=== PATIENT | female | born 1960 | race Caucasian/White ===

== ENCOUNTER 2017-10-23 18:03 | Emergency (ER) | payer MEDICAID ==
[~2017-10-23] VITALS: Ht 167.6 cm; Wt 90.0 kg
[~2017-10-23 18:03] MED LIST: ALPR-624 PO; DESV100T PO; DOCU250C4 PO; ELBA1TAB; ENAL5TAB PO; METF500T PO; ONDA4TAB6 PO; OXYC-511 PO; SITA100T11 PO; TRAZ-219 PO
[2017-10-23] MEDS ORDERED: dexamethasone sod phosphate 10mg/ml inj IM STA (20:19)
[2017-10-23] MEDS ORDERED: HYDROcodone/acetaminophen 10/325mg tab PO ONE (20:20)
[2017-10-23] MEDS ORDERED: ondansetron 4mg rapidly disintigrating tab PO ONE (20:20)
[2017-10-23 20:46] VITALS: BP 106/63
[2017-10-23] MEDS ORDERED: MAGN296S50 PO (21:14)
[2017-10-23] MEDS ORDERED: HYDROmorphone 1 mg/ml syringe IM ONE ×2 (21:15)
== END 2017-10-23 22:04 | disposition home or self-care (01) ==
LOC: ER 18:04
DX: M54.9 Dorsalgia, unspecified (principal); R20.0 Anesthesia of skin; G89.29 Other chronic pain; K21.9 Gastro-esophageal reflux disease without esophagitis; E11.9 Type 2 diabetes mellitus without complications; Z90.49 Acquired absence of other specified parts of digestive tract; Z98.890 Other specified postprocedural states; Z88.0 Allergy status to penicillin; Z88.2 Allergy status to sulfonamides; Z88.5 Allergy status to narcotic agent; Z88.8 Allergy status to other drugs, medicaments and biological substances; Z79.84 Long term (current) use of oral hypoglycemic drugs; Z79.899 Other long term (current) drug therapy; Z60.2 Problems related to living alone
CPT/HCPCS: 72100; 96372; 99284; J1100; J1170

== ENCOUNTER 2017-11-08 19:31 | Inpatient (IN) | payer MEDICAID ==
[~2017-11-08] VITALS: Ht 167.6 cm; Wt 82.7 kg
[~2017-11-08 19:31] MED LIST changes: +MAGN296S50 PO
[2017-11-08] MEDS ORDERED: morphine 4 MG/ML inj SYRINge IM ONE (21:35)
[2017-11-08 23:07] LABS: BASOPHILS % (AUTO) 0.7 % (0-1); EOSINOPHILS # (AUTO) 0.1 X10'3 (0-0.9); EOSINOPHILS % (AUTO) 2.8 % (0-6); HEMATOCRIT 31.1 % (35.0-45.0); HEMOGLOBIN 10.7 g/dl (12.0-16.0); LYMPHOCYTES # (AUTO) 1.4 X10'3 (1.1-4.8); LYMPHOCYTES % (AUTO) 34.9 % (21-51); MEAN CORPUSCULAR HEMOGLOBIN 30.5 PG (27.0-31.0); MEAN CORPUSCULAR HGB CONC 34.5 % (33.0-36.5); MEAN CORPUSCULAR VOLUME 88.4 FL (78-98); MEAN PLATELET VOLUME 6.9 FL (7.4-10.4); MONOCYTES # (AUTO) 0.4 X10'3 (0-0.9); MONOCYTES % (AUTO) 9.1 % (2-12); NEUTROPHILS # (AUTO) 2.1 X10'3 (1.8-7.7); NEUTROPHILS % (AUTO) 52.5 % (42-75); PLATELET COUNT 163 X10'3 (140-440); RED BLOOD COUNT 3.51 X10'6 (4.20-5.60); RED CELL DISTRIBUTION WIDTH 15.2 % (11.5-14.5)
[2017-11-08] MEDS ORDERED: ALPR1TAB2 PO (23:10)
[2017-11-08] MEDS ORDERED: CYCL-1 PO (23:10)
[2017-11-08 23:26] LABS: ALANINE AMINOTRANSFERASE 27 U/L (12-78); ALBUMIN 3.3 G/DL (3.4-5.0); ALBUMIN/GLOBULIN RATIO 0.7 (1.1-1.5); ALKALINE PHOSPHATASE 111 IU/L (46-116); ANION GAP 8 (8-16); ASPARTATE AMINO TRANSFERASE 15 U/L (10-37); BILIRUBIN,TOTAL 0.3 MG/DL (0.1-1.0); BLOOD UREA NITROGEN 39 MG/DL (7-18); BUN/CREATININE RATIO 30.5 (6.6-38.0); CALCIUM 8.9 MG/DL (8.5-10.1); CHLORIDE 103 MMOL/L (99-107); CREATININE 1.28 MG/DL (0.40-0.90); GLUCOSE 108 MG/DL (70-104); POTASSIUM 4.5 MMOL/L (3.5-5.1); SODIUM 135 MMOL/L (135-145); eGFR 43 ML/MIN
[2017-11-08] MEDS ORDERED: ondansetron/PF 4mg/2ml inj IV ONE (23:45)
[2017-11-09] MEDS: morphine 4 MG/ML inj SYRINge IV PRN ×2 (00:09→01:19)
[2017-11-09] MEDS ORDERED: ipratropium/albuterol 3ml nebule NEB PRN (01:00)
[2017-11-09] MEDS ORDERED: magnesium hydroxide 30ml (MOM) UD suspension PO PRN (01:00)
[2017-11-09] MEDS ORDERED: mag hydrox/Alum hydrox/simeth 30ml oral suspension PO PRN (01:00)
[2017-11-09] MEDS ORDERED: magnesium 1gm/100ml D5W IVPB 100 ML IV PRN (01:00)
[2017-11-09] MEDS ORDERED: acetaminophen 325mg tablet PO PRN (01:00)
[2017-11-09] MEDS ORDERED: potassium Cl 40MEQ/NS 500ml 500 ML IV PRN ×2 (01:00)
[2017-11-09] MEDS ORDERED: magnesium 4gm in 100ml NS 100 ML IV PRN (01:00)
[2017-11-09] MEDS ORDERED: ondansetron/PF 4mg/2ml inj IV PRN (01:00)
[2017-11-09] MEDS ORDERED: potassium Cl 20 mEq SR tablet PO PRN ×2 (01:00)
[2017-11-09] MEDS ORDERED: HYDROmorphone inj. 0.5 MG/0.5 ML DISP.SYRIN IV PRN (01:00)
[2017-11-09] MEDS ORDERED: MESSAGE TO PHARMACY PO ONE (01:25)
[2017-11-09] MEDS ORDERED: insulin Lispro (HumaLOG) vial - multi-dose SQ SCH (01:25)
[2017-11-09] MEDS ORDERED: dextrose 50%-water 50ml dispensing syringe IV PRN ×2 (01:25)
[2017-11-09] MEDS ORDERED: dextrose ORAL solution 15 GM/59 ML bottle PO PRN ×2 (01:25)
[2017-11-09] MEDS ORDERED: glucagon, human recombinant 1mg kit SUBCUT PRN (01:25)
[2017-11-09] MEDS: normal saline 1000ml 1,000 ML IV SCH ×2 (01:59→13:45)
[2017-11-09 02:16] LABS: CLARITY,URINE CLEAR (Clear); COLOR,URINE YELLOW (Yellow); GLUCOSE, URINE NEGATIVE (Neg); KETONES,URINE NEGATIVE (Neg); LEUKOCYTE ESTERASE ,URINE NEGATIVE (Neg); NITRITES, URINE NEGATIVE (Neg); OCCULT BLOOD,URINE SMALL (Neg); PH,URINE 5.5 (4.8-8.0); PROTEIN,URINE >=300 mg/dl (Neg); UROBILINOGEN,URINE 0.2 E.U/dL (0.2-1.0)
[2017-11-09 02:31] LABS: UA COLLECTION TYPE FOLEY CATH
[2017-11-09 02:33] LABS: WBC,URINE 0-4 /HPF (0-4)
[2017-11-09 02:34] LABS: BACTERIA,URINE 1+ /HPF (Neg); SQUAMOUS EPITHELIAL CELL,UR FEW /LPF (FEW)
[2017-11-09 02:35] LABS: AMORPHOUS URATES 2+
[2017-11-09] MEDS ORDERED: HYDROmorphone 1 mg/ml syringe ONE ×4 (03:33→15:17)
[2017-11-09] MEDS: HYDROmorphone inj. 0.5 MG/0.5 ML DISP.SYRIN IV PRN ×2 (03:37→07:30)
[2017-11-09 04:26] VITALS: BP 138/81
[2017-11-09 05:07] VITALS: BP 138/81
[2017-11-09] MEDS ORDERED: ALPRAZolam 0.5mg tablet PO PRN (05:25)
[2017-11-09] MEDS: dronabinol 2.5mg capsule PO PRN ×2 (05:36→11:55)
[2017-11-09] MEDS: oxyCODONE/APAP 10/325mg tablet PO SCH ×3 (05:36→13:45)
[2017-11-09 06:00] VITALS: BP 140/66
[2017-11-09] MEDS: docusate sod 100mg capsule PO SCH ×2 (07:27→13:45)
[2017-11-09] MEDS ORDERED: enoxaparin 40mg/0.4ml syringe SQ SCH (08:00)
[2017-11-09] MEDS ORDERED: K and/or MAG REPLACEMENT MC SCH (08:00)
[2017-11-09] MEDS ORDERED: cyclobenzaprine 10mg tablet PO SCH (08:00)
[2017-11-09] MEDS ORDERED: pantoprazole 40mg Tablet.DR PO SCH (08:00)
[2017-11-09] MEDS ORDERED: nicotine 21mg patch - 24 hr TD SCH (08:00)
[2017-11-09 10:00] VITALS: BP 148/82
[2017-11-09] MEDS ORDERED: insulin glargine (Lantus) pen - multi-dose SQ SCH (21:00)
== END 2017-11-09 16:30 | disposition home or self-care (01) | DRG 340 ==
LOC: ER 19:32 → ED HOLD 11-09 00:56 → ORTHO 4S 11-09 04:07
PROVIDERS: ADMIT Family Medicine; ATTEND Family Medicine
DX: S72.144A Nondisplaced intertrochanteric fracture of right femur, initial encounter for closed fracture (principal); E11.21 Type 2 diabetes mellitus with diabetic nephropathy; E11.40 Type 2 diabetes mellitus with diabetic neuropathy, unspecified; D64.9 Anemia, unspecified; E11.22 Type 2 diabetes mellitus with diabetic chronic kidney disease; F17.210 Nicotine dependence, cigarettes, uncomplicated; G89.29 Other chronic pain; W06.XXXA Fall from bed, initial encounter; K21.9 Gastro-esophageal reflux disease without esophagitis; N18.9 Chronic kidney disease, unspecified; Z88.0 Allergy status to penicillin; Z88.8 Allergy status to other drugs, medicaments and biological substances; Z88.2 Allergy status to sulfonamides; Z90.49 Acquired absence of other specified parts of digestive tract; Y92.003 Bedroom of unspecified non-institutional (private) residence as the place of occurrence of the external cause; Y93.89 Activity, other specified; Z82.3 Family history of stroke; Z82.49 Family history of ischemic heart disease and other diseases of the circulatory system; Z87.11 Personal history of peptic ulcer disease; Z89.611 Acquired absence of right leg above knee; Z95.0 Presence of cardiac pacemaker
CPT/HCPCS: 36415; 72192; 80053; 81001; 82948; 83036; 85025; 87070; 93005; 93306; 94760; 96372; 96374; 99285; A4315; J1170; J1650; J1815; J2270; J2405; J7030; Q0167

== ENCOUNTER 2017-12-04 19:35 | Emergency (ER) | payer MEDICAID ==
[~2017-12-04] VITALS: Ht 167.6 cm; Wt 81.8 kg
[~2017-12-04 19:35] MED LIST changes: -ALPR-624 PO; +ALPR1TAB2 PO; +CYCL-1 PO; -ELBA1TAB; -ENAL5TAB PO; -MAGN296S50 PO; -TRAZ-219 PO
[2017-12-04] MEDS ORDERED: morphine 4 MG/ML inj SYRINge IM ONE (21:05)
[2017-12-04] MEDS ORDERED: LIDOcaine 5% patch TP ONE (21:05)
[2017-12-04] MEDS ORDERED: ACET-2615 PO (21:35)
[2017-12-04] MEDS ORDERED: LIDO700A32 TOP (21:35)
[2017-12-04] MEDS ORDERED: IBUP-1984 PO (21:35)
[2017-12-04] MEDS ORDERED: ondansetron 4mg rapidly disintigrating tab PO ONE (21:55)
[2017-12-04 22:20] VITALS: BP 133/87
== END 2017-12-04 22:16 | disposition home or self-care (01) ==
LOC: ER 19:35
DX: G89.29 Other chronic pain (principal); M54.5 Low back pain; E11.9 Type 2 diabetes mellitus without complications; K21.9 Gastro-esophageal reflux disease without esophagitis; Z90.49 Acquired absence of other specified parts of digestive tract; Z88.0 Allergy status to penicillin; Z88.2 Allergy status to sulfonamides; Z88.5 Allergy status to narcotic agent; Z88.8 Allergy status to other drugs, medicaments and biological substances; Z79.84 Long term (current) use of oral hypoglycemic drugs; Z79.899 Other long term (current) drug therapy; Z60.2 Problems related to living alone
CPT/HCPCS: 72100; 96372; 99284; J2270

== ENCOUNTER 2017-12-05 14:17 | Emergency (ER) | payer MEDICAID ==
[~2017-12-05] VITALS: Ht 162.6 cm; Wt 81.8 kg
[~2017-12-05 14:17] MED LIST changes: +ACET-2615 PO; +IBUP-1984 PO; +LIDO700A32 TOP
[2017-12-05] MEDS ORDERED: morphine 4 MG/ML inj SYRINge IM ONE ×2 (15:45→22:40)
[2017-12-05 16:04] LABS: BASOPHILS % (AUTO) 0.9 % (0-1); EOSINOPHILS % (AUTO) 1.5 % (0-6); HEMATOCRIT 32.6 % (35.0-45.0); HEMOGLOBIN 10.9 g/dl (12.0-16.0); LYMPHOCYTES % (AUTO) 30.4 % (21-51); MEAN CORPUSCULAR HEMOGLOBIN 29.5 PG (27.0-31.0); MEAN CORPUSCULAR HGB CONC 33.4 % (33.0-36.5); MEAN CORPUSCULAR VOLUME 88.3 FL (78-98); MEAN PLATELET VOLUME 7.1 FL (7.4-10.4); MONOCYTES # (AUTO) 0.3 X10'3 (0-0.9); MONOCYTES % (AUTO) 8.7 % (2-12); NEUTROPHILS # (AUTO) 1.8 X10'3 (1.8-7.7); NEUTROPHILS % (AUTO) 58.5 % (42-75); PLATELET COUNT 124 X10'3 (140-440); RED BLOOD COUNT 3.68 X10'6 (4.20-5.60); RED CELL DISTRIBUTION WIDTH 15.1 % (11.5-14.5); WHITE BLOOD COUNT 3.1 X10'3 (4.5-11.0)
[2017-12-05] MEDS ORDERED: ondansetron 4mg rapidly disintigrating tab PO ONE (16:15)
[2017-12-05 16:18] LABS: ALANINE AMINOTRANSFERASE 18 U/L (12-78); ALBUMIN 3.4 G/DL (3.4-5.0); ALBUMIN/GLOBULIN RATIO 0.8 (1.1-1.5); ALKALINE PHOSPHATASE 109 IU/L (46-116); ANION GAP 8 (8-16); ASPARTATE AMINO TRANSFERASE 15 U/L (10-37); BILIRUBIN,TOTAL 0.3 MG/DL (0.1-1.0); BLOOD UREA NITROGEN 31 MG/DL (7-18); BUN/CREATININE RATIO 26.3 (6.6-38.0); CALCIUM 8.9 MG/DL (8.5-10.1); CHLORIDE 103 MMOL/L (99-107); CREATININE 1.18 MG/DL (0.40-0.90); GLUCOSE 110 MG/DL (70-104); SODIUM 137 MMOL/L (135-145); TOTAL CARBON DIOXIDE 25.7 MMOL/L (24-32); TOTAL PROTEIN 7.7 G/DL (6.4-8.2); eGFR 47 ML/MIN
[2017-12-05] MEDS ORDERED: nicotine 14mg patch - 24hr TD ONE (19:00)
[2017-12-05] MEDS ORDERED: normal saline 1000ml 1,000 ML IV SCH (19:00)
[2017-12-05] MEDS ORDERED: morphine 4 MG/ML inj SYRINge IV ONE (19:00)
[2017-12-05] MEDS ORDERED: LORazepam 2 mg/ml vial IV ONE (19:00)
[2017-12-05 23:10] VITALS: BP 140/82
== END 2017-12-05 23:11 | disposition short-term general hospital (02) ==
LOC: ER 14:17
DX: S22.088A Other fracture of T11-T12 vertebra, initial encounter for closed fracture (principal); M54.5 Low back pain; K21.9 Gastro-esophageal reflux disease without esophagitis; E11.9 Type 2 diabetes mellitus without complications; G89.29 Other chronic pain; Z87.11 Personal history of peptic ulcer disease; Z90.49 Acquired absence of other specified parts of digestive tract; Z98.890 Other specified postprocedural states; Z89.611 Acquired absence of right leg above knee; Z88.8 Allergy status to other drugs, medicaments and biological substances; Z88.0 Allergy status to penicillin; Z88.2 Allergy status to sulfonamides; Z88.1 Allergy status to other antibiotic agents; Z88.5 Allergy status to narcotic agent; Z79.899 Other long term (current) drug therapy; W06.XXXA Fall from bed, initial encounter; Y93.89 Activity, other specified; Y92.89 Other specified places as the place of occurrence of the external cause; Y99.9 Unspecified external cause status
CPT/HCPCS: 36415; 72131; 72192; 80053; 82948; 83605; 84145; 85025; 85651; 87040; 96372; 96374; 96375; 99291; J2060; J2270; J7030

== ENCOUNTER 2018-04-22 13:26 | Emergency (ER) | payer MEDICAID ==
[~2018-04-22] VITALS: Ht 167.6 cm; Wt 75.0 kg
[~2018-04-22 13:26] MED LIST changes: -ACET-2615 PO; -IBUP-1984 PO
[2018-04-22] MEDS ORDERED: ondansetron 4mg rapidly disintigrating tab PO ONE (14:25)
[2018-04-22] MEDS ORDERED: morphine 4 MG/ML inj SYRINge IM ONE (14:25)
--- NOTE | 2018-04-22 14:35 | NUR ---
PT TO CT
--- NOTE | 2018-04-22 14:50 | NUR ---
PT. MAY HAVE MS PER DR EARL.
[2018-04-22] MEDS ORDERED: morphine 4 MG/ML inj SYRINge IV ONE ×2 (15:55→19:10)
--- NOTE | 2018-04-22 16:04 | NUR ---
LAB AT BEDSIDE
[2018-04-22 16:21] LABS: BASOPHILS % (AUTO) 0.7 % (0-1); EOSINOPHILS # (AUTO) 0.1 X10'3 (0-0.9); EOSINOPHILS % (AUTO) 1.5 % (0-6); HEMATOCRIT 31.3 % (35.0-45.0); HEMOGLOBIN 10.5 g/dl (12.0-16.0); LYMPHOCYTES # (AUTO) 0.9 X10'3 (1.1-4.8); LYMPHOCYTES % (AUTO) 26.1 % (21-51); MEAN CORPUSCULAR HGB CONC 33.6 g/dL (33.0-36.5); MEAN CORPUSCULAR VOLUME 92.5 FL (78-98); MONOCYTES # (AUTO) 0.2 X10'3 (0-0.9); MONOCYTES % (AUTO) 6.9 % (2-12); NEUTROPHILS # (AUTO) 2.2 X10'3 (1.8-7.7); NEUTROPHILS % (AUTO) 64.8 % (42-75); PLATELET COUNT 103 X10'3 (140-440); RED BLOOD COUNT 3.38 X10'6 (4.20-5.60); RED CELL DISTRIBUTION WIDTH 14.9 % (11.5-14.5); WHITE BLOOD COUNT 3.4 X10'3 (4.5-11.0)
[2018-04-22] MEDS ORDERED: OXYC15TA88 PO (16:29)
[2018-04-22] MEDS ORDERED: LISI-604 PO (16:29)
[2018-04-22] MEDS ORDERED: ESOM20CA38 PO (16:29)
[2018-04-22] MEDS ORDERED: DOCU-267 PO (16:29)
[2018-04-22] MEDS ORDERED: METF-436 PO ×2 (16:30)
[2018-04-22] MEDS ORDERED: RISP1TAB13 PO (16:33)
[2018-04-22 16:36] LABS: ALANINE AMINOTRANSFERASE 17 U/L (12-78); ALBUMIN 3.4 G/DL (3.4-5.0); ALBUMIN/GLOBULIN RATIO 0.9 (1.1-1.5); ALKALINE PHOSPHATASE 106 IU/L (46-116); ANION GAP 8 (8-16); ASPARTATE AMINO TRANSFERASE 13 U/L (10-37); BILIRUBIN,TOTAL 0.2 MG/DL (0.1-1.0); BLOOD UREA NITROGEN 38 MG/DL (7-18); BUN/CREATININE RATIO 29.2 (6.6-38.0); CALCIUM 8.6 MG/DL (8.5-10.1); CHLORIDE 104 MMOL/L (99-107); GLUCOSE 77 MG/DL (70-104); POTASSIUM 5.9 MMOL/L (3.5-5.1); SODIUM 136 MMOL/L (135-145); TOTAL CARBON DIOXIDE 24.3 MMOL/L (24-32); TOTAL PROTEIN 7.4 G/DL (6.4-8.2); eGFR 42 ML/MIN
[2018-04-22] MEDS ORDERED: OXYC-150 PO (16:36)
--- NOTE | 2018-04-22 18:30 | NUR ---
PT IS AT THE DOOR OF THE ROOMIN A WHEELCHAIR YELLING ASKING TO TALK TO THE CHARGE NURSE. CHARGE NURSE JASON OSBORNE ARRIVES AND PT IS YELLING ABOUT NOT GETTING A GURNEY, YELLING ABOUT NO WANTING AN XRAY, SHE REPORTS THAT SHE HAS HAD TOO MUCH RADIATION. CHAGE NURSE JASON OSBORNE IS TRYING TO TALK TO THE PT CALMLY. PT IS YELLING OVER JASON OSBORNE AND WILL NOT HAVE A RATIONAL CONVERSATION. PT IS ANGRILY VOICING HER DISSAPROVAL FOR NOT HAVING A GURNEY AT HER DISPOSAL.
--- NOTE | 2018-04-22 18:32 | NUR ---
PT. IS ANGRY, YELLING AT STAFF. I CAME INTO THE ROOM TO DE-ESCALATE THE SITUATION. I TRIED TO EXPLAIN TO THE PT. THAT DR. EARL TALKED TO HER MULTIPLE TIMES AFTER SPEAKING TO THE AT [facility]. HE EXPLAINED THAT HE NEEDED TO DO ANOTHER X-RAY PER THE AT [facility]. PT. IS YELLING WANTING TO KNOW WHY SHE IS NOT LAYING ON A GURNEY. I EXPLAINED THAT I HAVE ALAS GURNEYS THAT ARE ALL FULL..... PT. STARTED YELLING AGAIN. I ASKED HER IF SHE WAS GOING TO LET ME EXPLAIN AND SHE PULLED OUT HER WATCH, WAS NOT MAKING EYE CONTACT, SHE WAS LOOKING AT HER WATCH AND SMUGGLY LAUGHIN... I TOLD HER I CAME IN TO EXPLAIN THE SITUATION TO HER. IF SHE DID NOT WANT TO LISTEN, THAT I HAD AN ER FULL OF PT'S I COULD BE HELPING. I TOLD HER I WOULD BE HAPPY TO EXPLAIN TO HER BUT I DID NOT HAVE TIME TO PLAY A GAME WITH HER. X-RAY STANDING BY TO DO TEST. I ASKED THE PT. IF SHE WAS GOING TO GET THE XRAY THAT THE FORM [facility] WANTED. SHE SAID "NO" "NO I AM STILL WAITING FOR THE EXPLINATION ABOUT THE GURNEY". I TOLD HER THAT I HAD LISTENED TO HER AND IT WOULD BE NICE IF SHE COULD HEAR ME OUT. SHE SAID AGAIN " GO AHEAD AND LOOKED AT HER WATCH AND STARTED TO SMILE.... I EXPLAINED TO HER THAT I WAS ENDING THIS CONVERSATION. PT. STATES SHE IS LEAVING AMA PAPER WORK STARTED
--- NOTE | 2018-04-22 18:39 | NUR ---
PT IS HAS GOTTEN HERSELF OUT OF THE WHEELCHAIR ON MADE A BED ON THE FLOOR. STILL REFUSING TO HAVE AND XRAY. DR EARL NOTIFIED THAT PT WILL GO AMA AND IS REFUSING MEDICAL TREATEMENT. I WENT IN TO HAVE PT SIGN AMA FORMS AND SHE REFUSED. DR EARL NOTIFED. DR EARL WENT IN TO TALK TO THE PT AND PT AGRRED TO HAVE XRAY AND DOES NOT WANT TO GO AMA.
--- NOTE | 2018-04-22 18:51 | NUR ---
PT IS BACK FROM XRAY AND IS LAYING ON THE FLOOR
--- NOTE | 2018-04-22 19:07 | NUR ---
PT IS SITTING ON THE FLOOR.
--- NOTE | 2018-04-22 19:40 | NUR ---
PATIENT BACK FROM XRAY
[2018-04-22 19:48] VITALS: BP 121/83
== END 2018-04-22 20:32 | disposition left against medical advice (07) ==
LOC: ER 13:27
DX: T84.038A Mechanical loosening of other internal prosthetic joint, initial encounter (principal); M54.89 Other dorsalgia; E87.5 Hyperkalemia; K21.9 Gastro-esophageal reflux disease without esophagitis; E11.9 Type 2 diabetes mellitus without complications; F17.200 Nicotine dependence, unspecified, uncomplicated; Z86.19 Personal history of other infectious and parasitic diseases; Z90.49 Acquired absence of other specified parts of digestive tract; Z95.0 Presence of cardiac pacemaker; Z89.611 Acquired absence of right leg above knee; Z98.890 Other specified postprocedural states; Z60.2 Problems related to living alone; Z88.8 Allergy status to other drugs, medicaments and biological substances; Z88.0 Allergy status to penicillin; Z88.2 Allergy status to sulfonamides; Z88.1 Allergy status to other antibiotic agents; Z88.5 Allergy status to narcotic agent; Z79.899 Other long term (current) drug therapy; Y92.89 Other specified places as the place of occurrence of the external cause
CPT/HCPCS: 36415; 72128; 80053; 84132; 85025; 85651; 86140; 93005; 96372; 96374; 96376; 99284; J2270; 96375

== ENCOUNTER 2018-12-03 16:16 | Emergency (ER) | payer MEDICAID ==
[~2018-12-03] VITALS: Ht 167.6 cm; Wt 90.0 kg
[~2018-12-03 16:16] MED LIST changes: +DOCU-267 PO; -DOCU250C4 PO; +ESOM20CA38 PO; -LIDO700A32 TOP; +LISI-604 PO; +METF-436 PO; -METF500T PO; +OXYC-150 PO; -OXYC-511 PO; +OXYC15TA88 PO; +RISP1TAB13 PO
[2018-12-03] MEDS ORDERED: morphine 10mg/ml inj. IV ONE ×2 (17:35→18:50)
[2018-12-03] MEDS ORDERED: ondansetron/PF 4mg/2ml inj IV ONE (18:55)
[2018-12-03 19:33] VITALS: BP 119/83
== END 2018-12-03 19:34 | disposition home or self-care (01) ==
LOC: ER 16:16
DX: M54.5 Low back pain (principal); G89.29 Other chronic pain; K21.9 Gastro-esophageal reflux disease without esophagitis; E11.9 Type 2 diabetes mellitus without complications; Z86.19 Personal history of other infectious and parasitic diseases; Z90.49 Acquired absence of other specified parts of digestive tract; Z95.0 Presence of cardiac pacemaker; Z98.890 Other specified postprocedural states; Z60.2 Problems related to living alone; Z88.8 Allergy status to other drugs, medicaments and biological substances; Z88.0 Allergy status to penicillin; Z88.2 Allergy status to sulfonamides; Z88.5 Allergy status to narcotic agent; Z79.84 Long term (current) use of oral hypoglycemic drugs; Z79.899 Other long term (current) drug therapy; X50.1XXA Overexertion from prolonged static or awkward postures, initial encounter; Y93.89 Activity, other specified; Y92.89 Other specified places as the place of occurrence of the external cause; Y99.8 Other external cause status
CPT/HCPCS: 72100; 96374; 96375; 96376; 99284; J2270; J2405; 99283

== ENCOUNTER 2019-09-09 13:17 | Emergency (ER) | payer MEDICAID ==
[~2019-09-09] VITALS: Ht 167.6 cm; Wt 83.6 kg
[~2019-09-09 13:17] MED LIST changes: +OXYC15TA PO; -OXYC15TA88 PO
[2019-09-09 13:27] VITALS: BP 152/93
== END 2019-09-09 16:40 | disposition home or self-care (01) ==
LOC: ER 13:18
DX: M54.5 Low back pain (principal); G89.29 Other chronic pain; K21.9 Gastro-esophageal reflux disease without esophagitis; E11.9 Type 2 diabetes mellitus without complications; Z86.19 Personal history of other infectious and parasitic diseases; Z90.49 Acquired absence of other specified parts of digestive tract; Z95.0 Presence of cardiac pacemaker; Z60.2 Problems related to living alone; Z88.0 Allergy status to penicillin; Z88.1 Allergy status to other antibiotic agents; Z88.8 Allergy status to other drugs, medicaments and biological substances; Z88.2 Allergy status to sulfonamides; Z79.899 Other long term (current) drug therapy
CPT/HCPCS: 72125; 72128; 72131; 99285

== ENCOUNTER 2020-02-16 22:51 | Emergency (ER) | payer MEDICAID ==
[~2020-02-16] VITALS: Ht 167.6 cm; Wt 86.4 kg
[2020-02-16 22:53] VITALS: BP 104/54
[2020-02-16] MEDS ORDERED: fentaNYL/PF 50MCG/1 ML 2ML syringe IM ONE (23:05)
[2020-02-16] MEDS ORDERED: ketorolac tromethamine 15mg/ml inj. IM ONE (23:05)
== END 2020-02-17 00:24 | disposition home or self-care (01) ==
LOC: ER 22:52
DX: M54.9 Dorsalgia, unspecified (principal); G89.29 Other chronic pain; Z98.890 Other specified postprocedural states; K21.9 Gastro-esophageal reflux disease without esophagitis; E11.9 Type 2 diabetes mellitus without complications; Z90.49 Acquired absence of other specified parts of digestive tract; Z95.0 Presence of cardiac pacemaker; Z89.611 Acquired absence of right leg above knee; Z86.73 Personal history of transient ischemic attack (TIA), and cerebral infarction without residual deficits; Z88.0 Allergy status to penicillin; Z88.1 Allergy status to other antibiotic agents; Z88.2 Allergy status to sulfonamides; Z88.6 Allergy status to analgesic agent; Z88.8 Allergy status to other drugs, medicaments and biological substances; Z79.899 Other long term (current) drug therapy
CPT/HCPCS: 72082; 96372; 99284; J1885; J3010

== ENCOUNTER 2021-03-13 15:28 | Emergency (ER) | payer MEDICAID ==
[~2021-03-13] VITALS: Ht 167.6 cm; Wt 80.5 kg
[~2021-03-13 15:28] MED LIST changes: +DOCU-262 PO; -DOCU-267 PO; -LISI-604 PO; +LISI5TAB22 PO
[2021-03-13] MEDS ORDERED: morphine 10mg/0.5ml (conc. morphine) oral syringe PO PRN (19:35)
[2021-03-13 19:40] VITALS: BP 140/77
[2021-03-13 20:03] LABS: BASOPHILS % (AUTO) 0.9 % (0-1); EOSINOPHILS # (AUTO) 0.1 X10'3 (0-0.9); EOSINOPHILS % (AUTO) 2.1 % (0-6); HEMATOCRIT 27.3 % (35.0-45.0); HEMOGLOBIN 9.3 g/dl (12.0-16.0); LYMPHOCYTES # (AUTO) 0.6 X10'3 (1.1-4.8); LYMPHOCYTES % (AUTO) 20.4 % (21-51); MEAN CORPUSCULAR HEMOGLOBIN 30.9 PG (27.0-31.0); MEAN PLATELET VOLUME 7.3 FL (7.4-10.4); MONOCYTES # (AUTO) 0.3 X10'3 (0-0.9); MONOCYTES % (AUTO) 10.6 % (2-12); PLATELET COUNT 148 X10'3 (140-440); RED CELL DISTRIBUTION WIDTH 14.2 % (11.5-14.5); WHITE BLOOD COUNT 3.1 X10'3 (4.5-11.0)
[2021-03-13 20:13] LABS: ALBUMIN 3.1 G/DL (3.4-5.0); ANION GAP 12 (8-16); BLOOD UREA NITROGEN 30 MG/DL (7-18); BUN/CREATININE RATIO 23.6 (6.6-38.0); CALCIUM 9.1 MG/DL (8.5-10.1); CHLORIDE 101 MMOL/L (99-107); CREATININE 1.27 MG/DL (0.40-0.90); GLUCOSE 98 MG/DL (70-104); POTASSIUM 4.6 MMOL/L (3.5-5.1); SODIUM 139 MMOL/L (135-145); TOTAL CARBON DIOXIDE 26.3 MMOL/L (24-32); eGFR 43 ML/MIN
== END 2021-03-13 20:55 | disposition home or self-care (01) ==
LOC: ER 15:28
DX: M25.551 Pain in right hip (principal); M54.50 Low back pain, unspecified; R11.12 Projectile vomiting; G54.6 Phantom limb syndrome with pain; F12.90 Cannabis use, unspecified, uncomplicated; G89.29 Other chronic pain; K21.9 Gastro-esophageal reflux disease without esophagitis; E11.9 Type 2 diabetes mellitus without complications; Z95.0 Presence of cardiac pacemaker; Z89.611 Acquired absence of right leg above knee; Z88.8 Allergy status to other drugs, medicaments and biological substances; Z88.0 Allergy status to penicillin; Z88.2 Allergy status to sulfonamides; Z79.899 Other long term (current) drug therapy; Z87.11 Personal history of peptic ulcer disease; Z87.81 Personal history of (healed) traumatic fracture
CPT/HCPCS: 36415; 73502; 80048; 85025; 99284